=== PATIENT | female | born 1960 | race Caucasian/White ===

== ENCOUNTER → 2016-12-24 | Outpatient (CLI) | payer OTHER ==
--- NOTE | 2016-12-24 15:04 | MA ---
Screening Digital Mammogram With Tomosynthesis Clinical Indications: Routine screening. Technique: Standard digital cephalocaudal and tomosynthesis mediolateral oblique projections are obt ained. The digital images were processed by the [employer] computer aided detection system. Comparison: 2015, 2014, 2012, 2011 Breast density: B; There are scattered fibroglandular densities. Findings: CAD was reviewed. No suspicious findings are identified. Impression: Negative mammogram. BI-RADS 1. Recommendation: Routine screening is recommended in one year. [facility] will send a result letter to the patient. Negative mammography should not preclude additional workup of a clinically suspicious finding. The patient's information is entered into a reminder system with a target due date for her next mammo gram.
== END ==
LOC: FIMAGING 14:22
DX: Z12.31 Encounter for screening mammogram for malignant neoplasm of breast (principal)
CPT/HCPCS: G0202

== ENCOUNTER → 2017-03-02 | Outpatient (CLI) | payer OTHER | LOC: FIMAGING 07:39 | PROVIDERS: ATTEND Physician Assistant | DX: N95.0 Postmenopausal bleeding (principal); R93.8 Abnormal findings on diagnostic imaging of other specified body structures ==

== ENCOUNTER 2017-05-01 09:04 | Day surgery (SDC) | payer OTHER ==
--- NOTE | 2017-04-07 16:26 | GHP ---
[f rep st] PREOP HISTORY AND PHYSICAL Surgery is not yet scheduled. PREOPERATIVE DIAGNOSIS: Postmenopausal bleeding. PLANNED PROCEDURE: Hysteroscopy with morcellation of endometrial tissue. INDICATIONS: Patient is a 56-year-old 0 who is postmenopausal. She had a history of a single episode of postmenopausal bleeding in September of 2016 , she had a thickened endometrium and ultrasound done on 01/31/2016 which was 6 mm. An endometrial biopsy was attempted in the office, but because patient is nulliparous, postmenopausal and has not had a cold knife conization on her cervix the nurse practitioner was not able to obtain an endometrial biopsy, so she treated her with Cytotec and had her return. She was not able to perform the endometrial biopsy at that time either. We discussed a paracervical block with endometrial biopsy in the office versus proceeding with a hysteroscopy with dilatation and curettage and morcellation of endometrial tissue. Patient would prefer to proceed with in the operating room D and C. Risks and benefits have been extensively reviewed with the patient, and patient has been properly consented. PAST MEDICAL HISTORY: Cervical dysplasia, hypertension, hypothyroidism, postmenopausal bleeding, and also depression, diverticulitis and diverticulosis. PAST HISTORY MEDICATIONS: Escitalopram oxalate 10 mg a day, levothyroxine 88 mcg a day, Valsartan, hydrochlorothiazide 160-25 mg tabs, 1-1/2 tabs daily, ProAir inhaler as needed. PAST SURGICAL HISTORY: Cervical conization in 2004, LEEP excision of cervix in 2003, tonsillectomy as a child. She had a colonoscopy in 2013. ALLERGIES: No known drug allergies. SOCIAL HISTORY: Unremarkable. FAMILY HISTORY: Hypertension, breast cancer, alcoholism, kidney cancer. OBSTETRIC/GYNECOLOGIC HISTORY: Patient is a 1, she is post menopausal. She has a history of cervical dysplasia. 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 Re-paps have been negative. PHYSICAL EXAM: VITAL SIGNS: Stable. GENERAL APPEARANCE: Alert and oriented x3. PSYCH: She has appropriate affect. NECK: Supple, and there is no thyromegaly. HEART: Regular, regular. LUNGS: Clear to auscultation. ABDOMEN : There is no organomegaly, it is nondistended, nontender. EXTREMITIES: Reveal no calf tenderness or edema. GYNECOLOGIC: Pelvic exam reveals a small uterus with no adnexal masses. Pelvic ultrasound shows a thickened endometrium measuring 6 mm, but otherwise unremarkable. A cervix was noted to be stenotic. REVIEW OF SYSTEMS: A 10-point review of systems is negative, with the exception of episode of postmenopausal bleeding. ASSESSMENT AND PLAN: A 56-year-old, 0 with one episode of postmenopausal bleeding and a slightly thickened endometrium on pelvic ultrasound. We were not able to perform an endometrial biopsy in the office. She will undergo hysteroscopy with morcellation of endometrial tissue in the operating room. Risks and benefits have been reviewed with the patient. The patient has been properly consented. /[id number]/MODL MTDD
[~2017-05-01 09:04] MED LIST: PROPOFOL 200 MG/20 ML VIAL ONE; fentaNYL 100 MCG/2 ML INJ ONE
[2017-05-01] MEDS ORDERED: SILVER NITRATE APPLICATOR 1 APPL TP ONE (10:11)
[2017-05-01] MEDS ORDERED: MIDAZOLAM 2 MG/2 ML VIAL ONE (10:37)
[2017-05-01] MEDS ORDERED: fentaNYL 100 MCG/2 ML INJ ONE (11:37)
[2017-05-01] MEDS ORDERED: PROMETHAZINE HCL 25 MG/ML INJ ONE (11:43)
[2017-05-01] MEDS ORDERED: ONDANSETRON 4 MG/2 ML VIAL ONE (11:43)
--- NOTE | 2017-05-01 11:46 | POSTOPPROG ---
Post Op Note Date of Operation: 05/01/17 Surgeon: Mary Jaramillo Anesthesiologist: tiffanie Anesthesia: LMA Pre-op Diagnosis: post menopausal bleeding Post-op Diagnosis: same Procedure: hysteroscopy dilation and currettage Inf/Abcess present in the surg proc area at time of surgery?: No EBL: Minimal Specimen(s): endometrial currettings
--- NOTE | 2017-05-01 12:38 | GOP ---
[f rep st] OPERATIVE REPORT DATE OF OPERATION: 05/01/2017 SURGEON: Mary Jaramillo DO ANESTHESIA: General with LMA. ANESTHESIOLOGIST: Carlos Fry MD. PREOPERATIVE DIAGNOSIS: Postmenopausal bleeding. POSTOPERATIVE DIAGNOSIS: Postmenopausal bleeding. PROCEDURE PERFORMED: Hysteroscopy with dilation and curettage. FINDINGS: 1. Exam under anesthesia: A small, mobile, midposition uterus with no adnexal masses. 1. Hysteroscopic findings: Diffusely thin endometrium with bilateral tubal ostia visualized. No o bvious polyps, fibroids, or masses. 2. SPECIMENS: Endometrial curettings. ESTIMATED BLOOD LOSS: 10 cc. INDICATIONS: The patient is a 56-year-old, 0, who has postmenopausal bleeding. She has a h istory of a single episode of postmenopausal bleeding in September of 2016. She had a thickened endo metrium on an ultrasound on 01/30/2017, which was 6 mm. We tried to do an endometrial biopsy in the office, but because the patient is nulliparous status, and the fact that she is postmenopausal and has had a cold knife conization, we were not able to do a biopsy in the office after multiple tries. Management options were reviewed with the patient. Decision was made to proceed with a hysterosco py with morcellation of endometrial tissue and a D and C. Risks and benefits of the procedure were reviewed with the patient and the patient was properly consented. DESCRIPTION OF PROCEDURE: The patient was taken to the operating room with intravenous fluids in pl fifi. She was then placed on the operating room table in the dorsal supine position, where general a nesthesia with LMA was obtained. She was then repositioned into the dorsal lithotomy position with the Yellofin stirrups and prepped and draped in the normal sterile fashion. Exam under anesthesia r evealed a small, mobile uterus with no adnexal masses. A speculum was then placed in the patient's vagina. An Allis clamp was used to grasp the anterior lip of the cervix. The cervix was then caref ully dilated to allow for the introduction of an operative 6 mm hysteroscope. The hysteroscope was introduced with fluid medium running. The endometrial cavity was completely explored. Bilateral tu bal ostia were visualized. No obvious thickening of the endometrium was noted. A sharp metal curet te was then introduced after the hysteroscope was removed and a circumferential curettage was perfor med until a gritty texture was noted. Scant amount of endometrial curettings were noted. The hyste roscope was then reintroduced and the uterine cavity remained unremarkable. Instruments were then r emoved the patient's vagina and she was easily awoken from anesthesia. Sponge count was correct. T he patient was transported to the recovery room in stable condition. /[id number]/MODL
[2017-05-01] MEDS ORDERED: OXYCODONE/APAP 5/325 TAB ONE (13:04)
== END 2017-05-01 13:55 | disposition home or self-care (01) ==
LOC: FSGY 09:04
PROVIDERS: ATTEND Obstetrics & Gynecology
PROC: 0UDB8ZX Extraction of Endometrium, Via Natural or Artificial Opening Endoscopic, Diagnostic (ICD-10-PCS; principal; 2017-05-01 10:30)
DX: N95.0 Postmenopausal bleeding (principal); Z87.410 Personal history of cervical dysplasia; I10 Essential (primary) hypertension; E03.9 Hypothyroidism, unspecified; F32.9 Major depressive disorder, single episode, unspecified
CPT/HCPCS: J2250; J2405; J2550; J2704; J3010

== ENCOUNTER → 2018-01-15 | Outpatient (CLI) | payer OTHER | LOC: BMCIMAGING 13:26 | PROVIDERS: ATTEND Physician Assistant | DX: Z12.31 Encounter for screening mammogram for malignant neoplasm of breast (principal) ==

== ENCOUNTER → 2019-05-12 | Outpatient (CLI) | payer OTHER | LOC: FIMAGING 10:23 ==